=== PATIENT | male | born 1940 | race Caucasian/White ===

== ENCOUNTER 2022-04-23 10:00 | Inpatient (IN) | payer MEDICARE, SELFPAY ==
[2022-04-23] MEDS ORDERED: cefTRIAXone\\ROCEPHIN 1 GM VIAL ONE (10:43)
[2022-04-23 10:55] LABS: #Basophils 0.1 10x3/uL (0.0-0.2); #Monocytes 1.7 10x3/uL (0.0-1.1); #Neutrophils 7.2 10x3/uL (1.5-8.4); %Basophils 0.4 % (0.0-2.0); %Eosinophils 0.3 % (0.0-6.0); %Lymphocytes 19.1 % (18.0-47.0); %Neutrophils 63.9 % (40.0-75.0); Hemoglobin 14.4 g/dL (13.5-17.5); Mean Corpuscular HGB CONC 33.4 g/dL (32.0-36.0); Mean Corpuscular Hemoglobin 30.8 pg (27.0-33.0); Mean Corpuscular Volume 92.1 fl (81.2-95.1); Platelet Count 130 10x3/uL (150-450); RBC Distribution Width 12.9 % (11.5-14.5); Red Blood Cell (RBC) Count 4.68 10x6/uL (4.32-5.72); White Blood Cell (WBC) Count 11.3 10x3/uL (3.5-10.5)
[2022-04-23 11:02] LABS: ALT (SGPT) 11 U/L (8-55); AST (SGOT) 23 U/L (5-34); Albumin 3.5 g/dL (3.4-4.8); Alkaline Phosphatase 61 U/L (40-110); Anion Gap 15 mmol/L (10-20); BUN (Urea Nitrogen) 24 mg/dL (8.4-25.7); Bilirubin, Total 0.9 mg/dL (0.2-1.2); Calc. Creatinine Clearance 0 mL/min (70-130); Calcium 8.1 mg/dL (7.8-10.44); Carbon Dioxide 20 mmol/L (23-31); Chloride 104 mmol/L (98-107); Estimated GFR 56; Glucose 97 mg/dL (83-110); Lipase 58 U/L (8-78); Protein, Total 6.5 g/dL (5.8-8.1); Sodium 135 mmol/L (136-145)
[2022-04-23 11:51] LABS: SARS-CoV-2 NAA Rapid Test DETECTED (NotDetected)
[2022-04-23 12:06] LABS: Bilirubin Neg (Negative); Blood, Urine 250 (Negative); Clarity Clear (Clear); Glucose, Urine (Dipstick) Normal (Negative); Ketone, Urine Negative (Negative); Leukocyte Negative (Negative); Nitrite Negative (Negative); Protein, Urine (Dipstick) 100 mg/dl (Neg-Trace); Specific Gravity, Urine 1.025 (1.002-1.036); Urobilinogen Normal mg/dL (Less than 2)
[2022-04-23 12:17] LABS: Bacteria/HPF 3+ HPF (None Seen); Mucous/LPF 1+ LPF (<2+); Squamous Epithelial 0-3 HPF (0-3); WBC/HPF 0-3 HPF (0-3)
[2022-04-23] MEDS ORDERED: Ondansetron PF 4 MG/2 ML Vial IVP PRN (21:25)
[2022-04-23] MEDS ORDERED: Acetaminophen 325 MG TAB PO PRN (21:25)
[2022-04-23] MEDS ORDERED: Melatonin 3 MG TAB PO PRN (22:26)
[2022-04-24 03:57] LABS: #Monocytes 1.5 10x3/uL (0.0-1.1); #Neutrophils 7.1 10x3/uL (1.5-8.4); %Basophils 0.3 % (0.0-2.0); %Lymphocytes 23.3 % (18.0-47.0); %Monocytes 12.9 % (0.0-10.0); %Neutrophils 62.6 % (40.0-75.0); Hemoglobin 14.2 g/dL (13.5-17.5); Mean Corpuscular HGB CONC 34.1 g/dL (32.0-36.0); Mean Corpuscular Hemoglobin 31.1 pg (27.0-33.0); Mean Corpuscular Volume 91.2 fl (81.2-95.1); Mean Platelet Volume 9.2 fl (7.4-10.4); Platelet Count 147 10x3/uL (150-450); RBC Distribution Width 12.7 % (11.5-14.5); Red Blood Cell (RBC) Count 4.57 10x6/uL (4.32-5.72); White Blood Cell (WBC) Count 11.3 10x3/uL (3.5-10.5)
[2022-04-24 04:14] LABS: Anion Gap 15 mmol/L (10-20); BUN (Urea Nitrogen) 21 mg/dL (8.4-25.7); Calc. Creatinine Clearance 0 mL/min (70-130); Calcium 8.3 mg/dL (7.8-10.44); Carbon Dioxide 22 mmol/L (23-31); Chloride 105 mmol/L (98-107); Estimated GFR 61; Glucose 100 mg/dL (83-110); Potassium 3.6 mmol/L (3.5-5.1); Sodium 138 mmol/L (136-145)
[2022-04-24] MEDS: Enoxaparin Sodium 40 MG/0.4 ML SYRINGE SC SCH (09:30)
[2022-04-24] MEDS: cefTRIAXone\\ROCEPHIN 1 GM in Sodium Chloride 0.9% 100 ML IVPB SCH (10:30)
[2022-04-24] MEDS ORDERED: Enoxaparin Sodium 40 MG/0.4 ML SYRINGE ONE (11:03)
[2022-04-24] MEDS ORDERED: cefTRIAXone\\ROCEPHIN 1 GM VIAL ONE (11:03)
[2022-04-24 16:10] VITALS: BMI 23.7
[2022-04-24] MEDS: Atorvastatin Calcium 40 MG TAB PO SCH (20:35)
[2022-04-25] MEDS: Aspirin 81 mg Enteric Coated Tablet PO SCH (09:27)
[2022-04-25] MEDS: Enoxaparin Sodium 40 MG/0.4 ML SYRINGE SC SCH (09:40)
[2022-04-25] MEDS: cefTRIAXone\\ROCEPHIN 1 GM in Sodium Chloride 0.9% 100 ML IVPB SCH (11:53)
[2022-04-25] MEDS: Lactated Ringer's 1,000 ML IV SCH ×2 (15:26→16:55)
[2022-04-25] MEDS: Atorvastatin Calcium 40 MG TAB PO SCH (21:02)
[2022-04-26] MEDS: Enoxaparin Sodium 40 MG/0.4 ML SYRINGE SC SCH (09:34)
[2022-04-26] MEDS: Aspirin 81 mg Enteric Coated Tablet PO SCH (09:34)
[2022-04-26] MEDS: cefTRIAXone\\ROCEPHIN 1 GM in Sodium Chloride 0.9% 100 ML IVPB SCH (09:34)
[2022-04-26] MEDS ORDERED: Lactated Ringer's 1,000 ML IV SCH (11:45)
[2022-04-26] MEDS: Lactated Ringer's 1,000 ML IV SCH (15:02)
[2022-04-26] MEDS: Atorvastatin Calcium 40 MG TAB PO SCH (21:42)
[2022-04-27] MEDS: Lactated Ringer's 1,000 ML IV SCH ×2 (00:48→16:07)
[2022-04-27] MEDS ORDERED: Lactated Ringer's 250 ML IV SCH (05:03)
[2022-04-27 07:11] LABS: Hemoglobin 14.3 g/dL (13.5-17.5); Mean Corpuscular HGB CONC 36.3 g/dL (32.0-36.0); Mean Corpuscular Hemoglobin 31.2 pg (27.0-33.0); Mean Platelet Volume 9.6 fl (7.4-10.4); Platelet Count 145 10x3/uL (150-450); RBC Distribution Width 12.5 % (11.5-14.5); Red Blood Cell (RBC) Count 4.58 10x6/uL (4.32-5.72); White Blood Cell (WBC) Count 6.1 10x3/uL (3.5-10.5)
[2022-04-27 07:55] LABS: Anion Gap 13 mmol/L (10-20); BUN (Urea Nitrogen) 12 mg/dL (8.4-25.7); Calc. Creatinine Clearance 85 mL/min (70-130); Calcium 8.3 mg/dL (7.8-10.44); Carbon Dioxide 22 mmol/L (23-31); Chloride 105 mmol/L (98-107); Estimated GFR 88; Glucose 87 mg/dL (83-110); Potassium 3.7 mmol/L (3.5-5.1); Sodium 136 mmol/L (136-145)
[2022-04-27] MEDS: Aspirin 81 mg Enteric Coated Tablet PO SCH (10:06)
[2022-04-27] MEDS: Enoxaparin Sodium 40 MG/0.4 ML SYRINGE SC SCH (10:06)
[2022-04-27] MEDS: Atorvastatin Calcium 40 MG TAB PO SCH (22:25)
[2022-04-28] MEDS: Lactated Ringer's 1,000 ML IV SCH ×2 (03:40→16:30)
[2022-04-28] MEDS: Aspirin 81 mg Enteric Coated Tablet PO SCH (09:16)
[2022-04-28] MEDS: Enoxaparin Sodium 40 MG/0.4 ML SYRINGE SC SCH (09:22)
[2022-04-28] MEDS ORDERED: Guaifenesin DM 100-10/5 ML UDCUP PO PRN (22:48)
[2022-04-28] MEDS: Atorvastatin Calcium 40 MG TAB PO SCH (23:04)
[2022-04-29] MEDS: Lactated Ringer's 1,000 ML IV SCH ×2 (07:00→20:36)
[2022-04-29] MEDS: Benzonatate 100 MG CAP PO SCH ×3 (08:41→20:36)
[2022-04-29] MEDS: Enoxaparin Sodium 40 MG/0.4 ML SYRINGE SC SCH (08:41)
[2022-04-29] MEDS: Aspirin 81 mg Enteric Coated Tablet PO SCH (08:41)
[2022-04-29] MEDS: Atorvastatin Calcium 40 MG TAB PO SCH (20:36)
[2022-04-30] MEDS: Lactated Ringer's 1,000 ML IV SCH ×2 (08:21→22:51)
[2022-04-30] MEDS: Enoxaparin Sodium 40 MG/0.4 ML SYRINGE SC SCH (08:22)
[2022-04-30] MEDS: Benzonatate 100 MG CAP PO SCH ×3 (08:22→22:45)
[2022-04-30] MEDS: Aspirin 81 mg Enteric Coated Tablet PO SCH (08:22)
[2022-04-30] MEDS: Atorvastatin Calcium 40 MG TAB PO SCH (22:45)
[2022-05-01 07:24] VITALS: BP 124/84; TEMP 97.3
[2022-05-01] MEDS: Benzonatate 100 MG CAP PO SCH ×2 (08:59→14:45)
[2022-05-01] MEDS: Enoxaparin Sodium 40 MG/0.4 ML SYRINGE SC SCH (08:59)
[2022-05-01] MEDS: Aspirin 81 mg Enteric Coated Tablet PO SCH (08:59)
[2022-05-01] MEDS: Lactated Ringer's 1,000 ML IV SCH (11:44)
== END 2022-05-01 18:21 | disposition home or self-care (01) | DRG 177 ==
LOC: CSHERS 10:00 → CSHERHOLD 20:19 → UNDOADMIN 20:19 → CSHERHOLD 04-24 14:04 → CSHTELE 04-24 14:04 → CSHERHOLD 04-24 16:54
PROVIDERS: ADMIT Family Medicine; ATTEND Internal Medicine
PROC: 8E0ZXY6 Isolation (ICD-10-PCS; principal; 2022-04-24)
DX: U07.1 COVID-19 (principal); G93.41 Metabolic encephalopathy; H91.90 Unspecified hearing loss, unspecified ear; D69.6 Thrombocytopenia, unspecified; I95.1 Orthostatic hypotension; Z86.73 Personal history of transient ischemic attack (TIA), and cerebral infarction without residual deficits; Z82.49 Family history of ischemic heart disease and other diseases of the circulatory system; Z87.891 Personal history of nicotine dependence; Z91.14 Patient's other noncompliance with medication regimen
CPT/HCPCS: 36415; 70450; 71045; 80048; 80053; 81003; 81015; 82140; 83605; 83690; 84443; 84484; 85025; 85027; 87040; 87086; 93005; 94760; 96365; J0696; J1650; J3490; J7120

== ENCOUNTER 2022-05-27 14:49 | Inpatient (IN) | payer MEDICARE ==
[~2022-05-27 14:49] MED LIST: Iopamidol 300 61% 100 ML VIAL FS ONE
[2022-05-27 15:12] LABS: Actual Bicarbonate (HCO3v) 18 mEq/L (22-28); Base Excess -5.7 mEq/L (-2.0 to +3.0); Calcium, Ionized (venous) 0.98 mmol/L (1.16-1.32); Chloride (VBG) 111 mmol/L (98-106); Hemoglobin (Hb) 12.8 g/dL (12.6-17.4); Potassium (VBG) 3.27 mmol/L (3.70-5.30); Puncture Site Other Site; RapidComm Collect By lab tech; Sodium 141.5 mmol/L (133-146); pH (venous) 7.38 (7.32-7.43)
[2022-05-27] MEDS ORDERED: NOREPINEPHRINE 8 MG/250 ML-D5W 250 ML ONE ×2 (15:13→17:53)
[2022-05-27 15:26] LABS: Bilirubin Neg (Negative); Blood, Urine 250 (Negative); Clarity Clear (Clear); Glucose, Urine (Dipstick) Normal (Negative); Ketone, Urine Negative (Negative); Leukocyte Negative (Negative); Nitrite Negative (Negative); Protein, Urine (Dipstick) 30 mg/dl (Neg-Trace); Urobilinogen Normal mg/dL (Less than 2)
[2022-05-27 15:31] LABS: #Basophils 0.1 10x3/uL (0.0-0.2); #Eosinphils 0.3 10x3/uL (0.0-0.5); #Monocytes 0.6 10x3/uL (0.0-1.1); #Neutrophils 9.6 10x3/uL (1.5-8.4); %Basophils 0.4 % (0.0-2.0); %Eosinophils 2.8 % (0.0-6.0); %Lymphocytes 11.2 % (18.0-47.0); %Monocytes 5.3 % (0.0-10.0); %Neutrophils 79.2 % (40.0-75.0); Hemoglobin 11.7 g/dL (13.5-17.5); Mean Corpuscular HGB CONC 33.6 g/dL (32.0-36.0); Mean Corpuscular Hemoglobin 30.3 pg (27.0-33.0); Mean Corpuscular Volume 90.2 fl (81.2-95.1); Mean Platelet Volume 9.5 fl (7.4-10.4); Platelet Count 115 10x3/uL (150-450); RBC Distribution Width 13.5 % (11.5-14.5); Red Blood Cell (RBC) Count 3.86 10x6/uL (4.32-5.72); White Blood Cell (WBC) Count 12.1 10x3/uL (3.5-10.5)
[2022-05-27 15:36] LABS: Squamous Epithelial 0-3 HPF (0-3); WBC/HPF 0-3 HPF (0-3)
[2022-05-27 15:37] LABS: INR-International Normal Ratio 1.2; PTT 26.6 sec (22.0-33.0); Prothrombin Time 12.4 sec (9.5-12.1)
[2022-05-27 15:37] LABS: Bacteria/HPF None Seen HPF (None Seen)
[2022-05-27 15:42] LABS: SARS-CoV-2 NAA Rapid Test DETECTED (NotDetected)
[2022-05-27 15:44] LABS: ALT (SGPT) 11 U/L (8-55); AST (SGOT) 22 U/L (5-34); Acetaminophen Less than 10.0 mcg/mL (10.0-30.0); Alcohol Less than 10 mg/dL (Less than 10); Alkaline Phosphatase 59 U/L (40-110); Anion Gap 11 mmol/L (10-20); BUN (Urea Nitrogen) 12 mg/dL (8.4-25.7); Bilirubin, Total 0.9 mg/dL (0.2-1.2); CK (CPK) 175 U/L (30-200); Calc. Creatinine Clearance 0 mL/min (70-130); Calcium 7.9 mg/dL (7.8-10.44); Carbon Dioxide 20 mmol/L (23-31); Chloride 113 mmol/L (98-107); Estimated GFR 62; Glucose 107 mg/dL (83-110); Potassium 3.4 mmol/L (3.5-5.1); Salicylate Less than 8.0 mg/dL (15.0-30.0); Sodium 141 mmol/L (136-145)
[2022-05-27 15:44] LABS: Amphetamine Not Detected (NotDetected); Barbiturates Screen Not Detected (NotDetected); Benzodiazepine Screen Not Detected (NotDetected); Cocaine Metabolite Screen Not Detected (NotDetected); Methadone Not Detected (NotDetected); Methamphetamine Not Detected (NotDetected); Opiate Screen Not Detected (NotDetected); Oxycodone Screen Not Detected (NotDetected); Phencyclidine (PCP) Not Detected (NotDetected); THC/Cannabinoid Screen Not Detected (NotDetected); Tricyclic Screen Not Detected (NotDetected)
[2022-05-27 15:57] LABS: CRP (Inflammatory) 1.19 mg/dL (= or < 0.5); Magnesium 1.8 mg/dL (1.6-2.6)
[2022-05-27] MEDS ORDERED: Electrolyte Replacement Protocol IVPB PRN (16:12)
[2022-05-27] MEDS ORDERED: Ventilator Sedation Protocol 1 EACH FS PRN (16:15)
[2022-05-27] MEDS ORDERED: Acetaminophen 650 MG Suppository PR PRN (16:15)
[2022-05-27] MEDS ORDERED: Acetaminophen 325 MG TAB PO PRN (16:15)
[2022-05-27] MEDS ORDERED: Propofol 1,000 MG/100 ML VIAL IV ONE (17:14)
[2022-05-27] MEDS ORDERED: Morphine 2 MG/ML VIAL SLOW IVP PRN (17:45)
[2022-05-27] MEDS ORDERED: fentaNYL Citrate-0.9 % NaCl/PF 100 ML IVPB SCH (17:45)
[2022-05-27] MEDS ORDERED: Lorazepam 2 MG/ML VIAL SLOW IVP PRN (17:45)
[2022-05-27] MEDS ORDERED: Fentanyl BOLUS 250 ML IVPB PRN (17:45)
[2022-05-27] MEDS ORDERED: Propofol BOLUS 1,000 MG/100 ML VIAL IV PRN (17:45)
[2022-05-27] MEDS ORDERED: DISCONTINUE PREVIOUS NARCOTIC PAIN MEDICATIONS AND BENZODIAZEPINES FS SCH (17:45)
[2022-05-27] MEDS ORDERED: NOREPINEPHRINE 8 MG/250 ML-D5W 250 ML IVPB SCH (18:00)
[2022-05-27] MEDS: Sodium Chloride 0.9% 1,000 ML IV SCH (18:20)
[2022-05-27] MEDS: Potassium Chloride 20 MEQ in Premix Bag 1 BAG IVPB SCH ×2 (18:23→20:41)
[2022-05-27] MEDS ORDERED: VANCOMYCIN 1.75 GM/350 ML BAG 1.75 GM in Premix Bag 1 BAG IVPB SCH (18:30)
[2022-05-27] MEDS ORDERED: Magnesium 2 GM/50 ML(in water) 2 GM in Premix Bag 1 BAG IVPB SCH (18:30)
[2022-05-27 19:27] LABS: Lactic Acid 2.2 mmol/L (0.5-2.2)
[2022-05-27 19:37] LABS: Troponin I 0.013 ng/mL (< 0.028)
[2022-05-27] MEDS: Cefepime 1 GM in Sodium Chloride 0.9% 100 ML IVPB SCH (20:41)
[2022-05-27] MEDS: Famotidine/PF 20 mg/2ml Vial SLOW IVP SCH (20:41)
[2022-05-27] MEDS: Propofol 1,000 MG/100 ML VIAL IV PRN (20:41)
[2022-05-27] MEDS ORDERED: Vancomycin 1 GM in Premix Bag 1 BAG IVPB SCH (21:00)
[2022-05-27 21:23] LABS: Troponin I 0.014 ng/mL (< 0.028)
[2022-05-28] MEDS: Sodium Chloride 0.9% 1,000 ML IV SCH (03:09)
[2022-05-28 04:35] LABS: #Basophils 0.1 10x3/uL (0.0-0.2); #Eosinphils 0.4 10x3/uL (0.0-0.5); #Monocytes 1.2 10x3/uL (0.0-1.1); #Neutrophils 10.4 10x3/uL (1.5-8.4); %Basophils 0.5 % (0.0-2.0); %Eosinophils 2.4 % (0.0-6.0); %Lymphocytes 15.7 % (18.0-47.0); %Monocytes 8.4 % (0.0-10.0); %Neutrophils 71.8 % (40.0-75.0); Hemoglobin 12.3 g/dL (13.5-17.5); Mean Corpuscular HGB CONC 33.2 g/dL (32.0-36.0); Mean Corpuscular Hemoglobin 30.3 pg (27.0-33.0); Mean Corpuscular Volume 91.4 fl (81.2-95.1); Mean Platelet Volume 9.5 fl (7.4-10.4); Platelet Count 123 10x3/uL (150-450); RBC Distribution Width 13.7 % (11.5-14.5); Red Blood Cell (RBC) Count 4.06 10x6/uL (4.32-5.72); White Blood Cell (WBC) Count 14.5 10x3/uL (3.5-10.5)
[2022-05-28 04:49] LABS: Anion Gap 14 mmol/L (10-20); BUN (Urea Nitrogen) 12 mg/dL (8.4-25.7); Calc. Creatinine Clearance 65 mL/min (70-130); Calcium 8.2 mg/dL (7.8-10.44); Carbon Dioxide 20 mmol/L (23-31); Chloride 113 mmol/L (98-107); Estimated GFR 62; Glucose 101 mg/dL (83-110); Magnesium 2.2 mg/dL (1.6-2.6); Phosphorus 3.1 mg/dL (2.3-4.7); Potassium 4.4 mmol/L (3.5-5.1); Sodium 143 mmol/L (136-145)
[2022-05-28 07:22] LABS: Actual Bicarbonate (HCO3a) 20.1 mEq/L (22-28); Base Excess (BEa) -5.6 mEq/L (-2.0 to +3.0); CO2 Tension 39.9 mmHg (35.0-45.0); Calcium, Ionized (arterial) 1.19 mmol/L (1.12-1.30); Carboxyhemoglobin (COHb) 0.3 gm% (0.0-3.0); Hemoglobin (Hb) 12.2 g/dL (14.0-18.0); O2 Tension (PaO2), arterial 96.6 mmHg (> 60.0); Potassium - ABG Lab 4.1 mmol/L (3.70-5.30); Puncture Site RRA; pH, Arterial 7.32 (7.35-7.45)
[2022-05-28 07:23] LABS: ALV-art Gradient 138.725 mmHg (0-20)
[2022-05-28] MEDS: Propofol 1,000 MG/100 ML VIAL IV PRN (08:03)
[2022-05-28] MEDS: Vancomycin HCl 1 GM in Sodium Chloride 0.9% 250 ML 250 ML IVPB SCH ×2 (08:21→21:00)
[2022-05-28] MEDS: Cefepime 1 GM in Sodium Chloride 0.9% 100 ML IVPB SCH (08:21)
[2022-05-28] MEDS: Famotidine/PF 20 mg/2ml Vial SLOW IVP SCH ×2 (08:21→21:52)
[2022-05-28] MEDS: Dexmedetomidine In 0.9 % NaCl 100 ML IVPB SCH ×2 (10:29→21:58)
[2022-05-28] MEDS: Dextrose 5 %-0.45 % NaCl 1,000 ML IV SCH (10:44)
[2022-05-28] MEDS ORDERED: Piperacillin/Tazobactam 3.375 GM in Sodium Chloride 0.9% 100 ML IVPB SCH (11:00)
[2022-05-28] MEDS ORDERED: Heparin 5,000 UNITS/ML VIAL SC SCH (15:00)
[2022-05-28] MEDS: Piperacillin/Tazobactam 3.375 GM in Sodium Chloride 0.9% 100 ML IVPB SCH ×2 (15:44→23:30)
[2022-05-28] MEDS ORDERED: Vancomycin HCl 1 GM in Sodium Chloride 0.9% 250 ML 250 ML IVPB SCH (18:00)
[2022-05-28] MEDS ORDERED: Haloperidol Lactate 5 MG/ML VIAL SLOW IVP PRN (21:05)
[2022-05-28] MEDS: Heparin 5,000 UNITS/ML VIAL SC SCH (21:52)
[2022-05-29 05:20] LABS: #Basophils 0.1 10x3/uL (0.0-0.2); #Eosinphils 0.3 10x3/uL (0.0-0.5); #Monocytes 1.2 10x3/uL (0.0-1.1); #Neutrophils 13.8 10x3/uL (1.5-8.4); %Basophils 0.3 % (0.0-2.0); %Eosinophils 1.5 % (0.0-6.0); %Lymphocytes 10.3 % (18.0-47.0); %Monocytes 6.8 % (0.0-10.0); %Neutrophils 80.5 % (40.0-75.0); Mean Corpuscular HGB CONC 33.7 g/dL (32.0-36.0); Mean Corpuscular Hemoglobin 30.6 pg (27.0-33.0); Mean Corpuscular Volume 90.8 fl (81.2-95.1); Mean Platelet Volume 9.4 fl (7.4-10.4); Platelet Count 113 10x3/uL (150-450); RBC Distribution Width 13.8 % (11.5-14.5); Red Blood Cell (RBC) Count 3.92 10x6/uL (4.32-5.72); White Blood Cell (WBC) Count 17.1 10x3/uL (3.5-10.5)
[2022-05-29 05:26] LABS: Vancomycin, Trough 21.7 ug/mL
[2022-05-29 05:28] LABS: Anion Gap 10 mmol/L (10-20); BUN (Urea Nitrogen) 15 mg/dL (8.4-25.7); Calc. Creatinine Clearance 53 mL/min (70-130); Carbon Dioxide 19 mmol/L (23-31); Chloride 115 mmol/L (98-107); Estimated GFR 50; Glucose 111 mg/dL (83-110); Potassium 3.9 mmol/L (3.5-5.1); Sodium 140 mmol/L (136-145)
[2022-05-29] MEDS: Piperacillin/Tazobactam 3.375 GM in Sodium Chloride 0.9% 100 ML IVPB SCH ×3 (06:33→23:35)
[2022-05-29] MEDS: Dextrose 5 %-0.45 % NaCl 1,000 ML IV SCH (06:34)
[2022-05-29] MEDS: Famotidine/PF 20 mg/2ml Vial SLOW IVP SCH ×2 (08:28→20:41)
[2022-05-29] MEDS: Heparin 5,000 UNITS/ML VIAL SC SCH ×3 (08:28→20:41)
[2022-05-29] MEDS: Dexmedetomidine In 0.9 % NaCl 100 ML IVPB SCH ×2 (08:28→17:59)
[2022-05-29] MEDS: Potassium Chloride 20 MEQ in Lactated Ringer's 1,000 ML IV SCH (12:16)
[2022-05-29] MEDS ORDERED: Vancomycin HCl 1 GM in Sodium Chloride 0.9% 250 ML 250 ML IVPB SCH (18:00)
[2022-05-29 20:09] LABS: #Basophils 0.1 10x3/uL (0.0-0.2); #Eosinphils 0.4 10x3/uL (0.0-0.5); #Neutrophils 10.6 10x3/uL (1.5-8.4); %Basophils 0.4 % (0.0-2.0); %Lymphocytes 11.8 % (18.0-47.0); %Monocytes 7.1 % (0.0-10.0); Hemoglobin 12.2 g/dL (13.5-17.5); Mean Corpuscular HGB CONC 33.2 g/dL (32.0-36.0); Mean Corpuscular Hemoglobin 30.4 pg (27.0-33.0); Mean Corpuscular Volume 91.8 fl (81.2-95.1); Mean Platelet Volume 9.7 fl (7.4-10.4); Platelet Count 109 10x3/uL (150-450); RBC Distribution Width 13.6 % (11.5-14.5); Red Blood Cell (RBC) Count 4.01 10x6/uL (4.32-5.72); White Blood Cell (WBC) Count 13.8 10x3/uL (3.5-10.5)
[2022-05-29] MEDS ORDERED: Midazolam HCl 2 mg/2 ml Vial SLOW IVP PRN (23:23)
[2022-05-29] MEDS ORDERED: PHENobarbital Sodium 65 MG/ML VIAL SLOW IVP PRN (23:25)
[2022-05-30] MEDS: Dexmedetomidine In 0.9 % NaCl 400 MCG in Premix Bag 1 BAG IVPB SCH ×3 (00:14→21:02)
[2022-05-30] MEDS: Potassium Chloride 20 MEQ in Lactated Ringer's 1,000 ML IV SCH (01:44)
[2022-05-30 04:34] LABS: #Basophils 0.1 10x3/uL (0.0-0.2); #Eosinphils 0.4 10x3/uL (0.0-0.5); #Monocytes 0.9 10x3/uL (0.0-1.1); #Neutrophils 9.7 10x3/uL (1.5-8.4); %Basophils 0.4 % (0.0-2.0); %Eosinophils 2.8 % (0.0-6.0); %Lymphocytes 12.1 % (18.0-47.0); %Monocytes 7.4 % (0.0-10.0); %Neutrophils 76.6 % (40.0-75.0); Hemoglobin 11.7 g/dL (13.5-17.5); Mean Corpuscular HGB CONC 34.1 g/dL (32.0-36.0); Mean Corpuscular Hemoglobin 30.6 pg (27.0-33.0); Mean Corpuscular Volume 89.8 fl (81.2-95.1); Mean Platelet Volume 9.9 fl (7.4-10.4); Platelet Count 116 10x3/uL (150-450); RBC Distribution Width 13.4 % (11.5-14.5); Red Blood Cell (RBC) Count 3.82 10x6/uL (4.32-5.72); White Blood Cell (WBC) Count 12.7 10x3/uL (3.5-10.5)
[2022-05-30 04:35] LABS: Anion Gap 13 mmol/L (10-20); BUN (Urea Nitrogen) 16 mg/dL (8.4-25.7); Calc. Creatinine Clearance 69 mL/min (70-130); Calcium 8.4 mg/dL (7.8-10.44); Carbon Dioxide 16 mmol/L (23-31); Chloride 114 mmol/L (98-107); Estimated GFR 68; Glucose 99 mg/dL (83-110); Potassium 4.3 mmol/L (3.5-5.1); Sodium 139 mmol/L (136-145)
[2022-05-30] MEDS: Piperacillin/Tazobactam 3.375 GM in Sodium Chloride 0.9% 100 ML IVPB SCH ×3 (07:24→23:03)
[2022-05-30] MEDS: Famotidine/PF 20 mg/2ml Vial SLOW IVP SCH ×2 (08:14→21:01)
[2022-05-30] MEDS: Enoxaparin Sodium 100 MG/ML SYRINGE SC SCH ×2 (08:14→21:01)
[2022-05-30] MEDS ORDERED: Enoxaparin Sodium 100 MG/ML SYRINGE ONE (08:17)
[2022-05-30] MEDS: Sodium Bicarbonate 50 MEQ in Dextrose 5 %-0.45 % NaCl 1,000 ML IV SCH (08:28)
[2022-05-30 17:44] LABS: Vancomycin, Trough 9.6 ug/mL
[2022-05-30] MEDS: Sodium Bicarbonate Tab 325 MG TAB PO SCH (21:01)
[2022-05-30] MEDS: HYDROcodone/Acetaminophen 5/325 mg Tablet PO PRN (21:02)
[2022-05-31] MEDS: Dexmedetomidine In 0.9 % NaCl 400 MCG in Premix Bag 1 BAG IVPB SCH ×5 (02:22→22:15)
[2022-05-31 03:46] LABS: #Basophils 0.1 10x3/uL (0.0-0.2); #Eosinphils 0.5 10x3/uL (0.0-0.5); #Monocytes 0.7 10x3/uL (0.0-1.1); #Neutrophils 5.9 10x3/uL (1.5-8.4); %Basophils 0.6 % (0.0-2.0); %Eosinophils 5.7 % (0.0-6.0); %Lymphocytes 22.8 % (18.0-47.0); %Monocytes 7.3 % (0.0-10.0); %Neutrophils 62.2 % (40.0-75.0); Hemoglobin 11.5 g/dL (13.5-17.5); Mean Corpuscular Hemoglobin 30.6 pg (27.0-33.0); Mean Corpuscular Volume 89.9 fl (81.2-95.1); Mean Platelet Volume 9.7 fl (7.4-10.4); Platelet Count 141 10x3/uL (150-450); RBC Distribution Width 13.4 % (11.5-14.5); Red Blood Cell (RBC) Count 3.76 10x6/uL (4.32-5.72); White Blood Cell (WBC) Count 9.4 10x3/uL (3.5-10.5)
[2022-05-31 04:06] LABS: Anion Gap 12 mmol/L (10-20); BUN (Urea Nitrogen) 12 mg/dL (8.4-25.7); Calc. Creatinine Clearance 81 mL/min (70-130); Calcium 8.2 mg/dL (7.8-10.44); Carbon Dioxide 22 mmol/L (23-31); Chloride 110 mmol/L (98-107); Estimated GFR 79; Glucose 118 mg/dL (83-110); Potassium 3.9 mmol/L (3.5-5.1); Sodium 140 mmol/L (136-145)
[2022-05-31] MEDS: Sodium Bicarbonate 50 MEQ in Dextrose 5 %-0.45 % NaCl 1,000 ML IV SCH (05:28)
[2022-05-31] MEDS: Piperacillin/Tazobactam 3.375 GM in Sodium Chloride 0.9% 100 ML IVPB SCH ×3 (06:29→23:00)
[2022-05-31] MEDS: Sodium Bicarbonate Tab 325 MG TAB PO SCH ×2 (08:02→21:47)
[2022-05-31] MEDS: Famotidine/PF 20 mg/2ml Vial SLOW IVP SCH ×2 (08:02→21:47)
[2022-05-31] MEDS: Enoxaparin Sodium 100 MG/ML SYRINGE SC SCH ×2 (08:02→21:47)
[2022-05-31] MEDS: HYDROcodone/Acetaminophen 5/325 mg Tablet PO PRN (21:47)
[2022-06-01] MEDS: Dexmedetomidine In 0.9 % NaCl 400 MCG in Premix Bag 1 BAG IVPB SCH ×6 (02:40→23:58)
[2022-06-01] MEDS: Sodium Bicarbonate 50 MEQ in Dextrose 5 %-0.45 % NaCl 1,000 ML IV SCH ×2 (03:43→23:54)
[2022-06-01 03:55] LABS: #Eosinphils 0.4 10x3/uL (0.0-0.5); #Monocytes 0.5 10x3/uL (0.0-1.1); #Neutrophils 4.5 10x3/uL (1.5-8.4); %Basophils 0.5 % (0.0-2.0); %Eosinophils 5.7 % (0.0-6.0); %Lymphocytes 23.9 % (18.0-47.0); %Monocytes 7.3 % (0.0-10.0); %Neutrophils 61.1 % (40.0-75.0); Hemoglobin 11.5 g/dL (13.5-17.5); Mean Corpuscular HGB CONC 34.3 g/dL (32.0-36.0); Mean Corpuscular Hemoglobin 30.6 pg (27.0-33.0); Mean Corpuscular Volume 89.1 fl (81.2-95.1); Mean Platelet Volume 9.7 fl (7.4-10.4); Platelet Count 172 10x3/uL (150-450); RBC Distribution Width 13.2 % (11.5-14.5); Red Blood Cell (RBC) Count 3.76 10x6/uL (4.32-5.72); White Blood Cell (WBC) Count 7.4 10x3/uL (3.5-10.5)
[2022-06-01 04:02] LABS: Anion Gap 12 mmol/L (10-20); BUN (Urea Nitrogen) 9 mg/dL (8.4-25.7); Calc. Creatinine Clearance 78 mL/min (70-130); Calcium 8.1 mg/dL (7.8-10.44); Carbon Dioxide 20 mmol/L (23-31); Chloride 113 mmol/L (98-107); Estimated GFR 77; Glucose 111 mg/dL (83-110); Potassium 3.6 mmol/L (3.5-5.1); Sodium 141 mmol/L (136-145)
[2022-06-01] MEDS: Piperacillin/Tazobactam 3.375 GM in Sodium Chloride 0.9% 100 ML IVPB SCH ×3 (07:14→23:13)
[2022-06-01] MEDS: Enoxaparin Sodium 100 MG/ML SYRINGE SC SCH ×2 (08:21→20:51)
[2022-06-01] MEDS: Sodium Bicarbonate Tab 325 MG TAB PO SCH ×2 (08:21→20:51)
[2022-06-01] MEDS: Famotidine/PF 20 mg/2ml Vial SLOW IVP SCH ×2 (08:21→20:52)
[2022-06-02 03:48] LABS: #Eosinphils 0.3 10x3/uL (0.0-0.5); #Monocytes 0.6 10x3/uL (0.0-1.1); #Neutrophils 4.3 10x3/uL (1.5-8.4); %Basophils 0.4 % (0.0-2.0); %Eosinophils 4.5 % (0.0-6.0); %Lymphocytes 24.4 % (18.0-47.0); %Monocytes 8.7 % (0.0-10.0); %Neutrophils 60.3 % (40.0-75.0); Hemoglobin 10.7 g/dL (13.5-17.5); Mean Corpuscular HGB CONC 34.1 g/dL (32.0-36.0); Mean Corpuscular Hemoglobin 30.3 pg (27.0-33.0); Mean Platelet Volume 9.5 fl (7.4-10.4); Platelet Count 165 10x3/uL (150-450); RBC Distribution Width 13.4 % (11.5-14.5); Red Blood Cell (RBC) Count 3.53 10x6/uL (4.32-5.72); White Blood Cell (WBC) Count 7.1 10x3/uL (3.5-10.5)
[2022-06-02 04:00] LABS: Anion Gap 11 mmol/L (10-20); BUN (Urea Nitrogen) 8 mg/dL (8.4-25.7); Calc. Creatinine Clearance 81 mL/min (70-130); Calcium 7.9 mg/dL (7.8-10.44); Carbon Dioxide 22 mmol/L (23-31); Chloride 113 mmol/L (98-107); Estimated GFR 82; Glucose 100 mg/dL (83-110); Potassium 3.4 mmol/L (3.5-5.1); Sodium 143 mmol/L (136-145)
[2022-06-02] MEDS ORDERED: Potassium Chloride 20 MEQ TAB PO SCH (05:15)
[2022-06-02] MEDS: Dexmedetomidine In 0.9 % NaCl 400 MCG in Premix Bag 1 BAG IVPB SCH (05:21)
[2022-06-02] MEDS: Piperacillin/Tazobactam 3.375 GM in Sodium Chloride 0.9% 100 ML IVPB SCH ×3 (06:02→23:15)
[2022-06-02] MEDS: Potassium Chloride 20 MEQ in Premix Bag 1 BAG IVPB SCH ×2 (06:02→07:26)
[2022-06-02] MEDS: Famotidine/PF 20 mg/2ml Vial SLOW IVP SCH ×2 (08:00→20:41)
[2022-06-02] MEDS: Enoxaparin Sodium 100 MG/ML SYRINGE SC SCH ×2 (08:00→20:40)
[2022-06-02] MEDS: Sodium Bicarbonate Tab 325 MG TAB PO SCH ×2 (08:00→20:40)
[2022-06-02] MEDS ORDERED: Enoxaparin Sodium 100 MG/ML SYRINGE ONE (20:44)
[2022-06-02] MEDS: Metoprolol Tartrate 5 MG/5 ML VIAL IVP PRN (20:59)
[2022-06-03 00:01] LABS: #Eosinphils 0.2 10x3/uL (0.0-0.5); #Monocytes 1.1 10x3/uL (0.0-1.1); #Neutrophils 8.8 10x3/uL (1.5-8.4); %Basophils 0.3 % (0.0-2.0); %Eosinophils 1.7 % (0.0-6.0); %Lymphocytes 14.2 % (18.0-47.0); %Monocytes 8.8 % (0.0-10.0); %Neutrophils 73.2 % (40.0-75.0); Hemoglobin 11.7 g/dL (13.5-17.5); Mean Corpuscular HGB CONC 32.8 g/dL (32.0-36.0); Mean Corpuscular Hemoglobin 29.5 pg (27.0-33.0); Mean Corpuscular Volume 89.9 fl (81.2-95.1); Mean Platelet Volume 9.4 fl (7.4-10.4); Platelet Count 242 10x3/uL (150-450); RBC Distribution Width 13.4 % (11.5-14.5); Red Blood Cell (RBC) Count 3.97 10x6/uL (4.32-5.72)
[2022-06-03 00:15] LABS: Anion Gap 13 mmol/L (10-20); BUN (Urea Nitrogen) 6 mg/dL (8.4-25.7); Calc. Creatinine Clearance 64 mL/min (70-130); Calcium 8.5 mg/dL (7.8-10.44); Carbon Dioxide 24 mmol/L (23-31); Chloride 111 mmol/L (98-107); Estimated GFR 61; Glucose 86 mg/dL (83-110); Potassium 3.8 mmol/L (3.5-5.1); Sodium 144 mmol/L (136-145)
[2022-06-03] MEDS ORDERED: Lorazepam 2 MG/ML VIAL SLOW IVP PRN (01:13)
[2022-06-03] MEDS ORDERED: Lactated Ringer's 500 ML IV SCH (01:15)
[2022-06-03] MEDS ORDERED: Dextrose 5 %-0.45 % NaCl 1,000 ML IV SCH (01:30)
[2022-06-03] MEDS: Metoprolol Tartrate 5 MG/5 ML VIAL IVP PRN ×3 (03:57→20:05)
[2022-06-03 04:44] LABS: Lactic Acid 1.4 mmol/L (0.5-2.2)
[2022-06-03 04:51] LABS: #Eosinphils 0.1 10x3/uL (0.0-0.5); #Monocytes 0.9 10x3/uL (0.0-1.1); #Neutrophils 8.4 10x3/uL (1.5-8.4); %Basophils 0.4 % (0.0-2.0); %Eosinophils 0.7 % (0.0-6.0); %Monocytes 7.9 % (0.0-10.0); %Neutrophils 75.3 % (40.0-75.0); Hemoglobin 11.5 g/dL (13.5-17.5); Mean Corpuscular HGB CONC 34.6 g/dL (32.0-36.0); Mean Corpuscular Hemoglobin 30.9 pg (27.0-33.0); Mean Corpuscular Volume 89.2 fl (81.2-95.1); Mean Platelet Volume 9.7 fl (7.4-10.4); Platelet Count 230 10x3/uL (150-450); RBC Distribution Width 13.6 % (11.5-14.5); Red Blood Cell (RBC) Count 3.72 10x6/uL (4.32-5.72); White Blood Cell (WBC) Count 11.1 10x3/uL (3.5-10.5)
[2022-06-03 04:52] LABS: ALT (SGPT) 14 U/L (8-55); AST (SGOT) 22 U/L (5-34); Alkaline Phosphatase 58 U/L (40-110); Anion Gap 12 mmol/L (10-20); BUN (Urea Nitrogen) 6 mg/dL (8.4-25.7); Bilirubin, Total 0.9 mg/dL (0.2-1.2); Calc. Creatinine Clearance 64 mL/min (70-130); Calcium 8.4 mg/dL (7.8-10.44); Carbon Dioxide 25 mmol/L (23-31); Chloride 108 mmol/L (98-107); Estimated GFR 61; Globulin 2.9 g/dL (2.4-3.5); Glucose 85 mg/dL (83-110); Potassium 3.8 mmol/L (3.5-5.1); Protein, Total 5.9 g/dL (5.8-8.1); Sodium 141 mmol/L (136-145)
[2022-06-03] MEDS: Piperacillin/Tazobactam 3.375 GM in Sodium Chloride 0.9% 100 ML IVPB SCH ×3 (06:41→22:49)
[2022-06-03] MEDS: Famotidine/PF 20 mg/2ml Vial SLOW IVP SCH ×2 (08:10→20:04)
[2022-06-03] MEDS: Enoxaparin Sodium 100 MG/ML SYRINGE SC SCH ×2 (08:10→20:04)
[2022-06-03] MEDS: Sodium Bicarbonate Tab 325 MG TAB PO SCH ×2 (10:15→20:05)
[2022-06-03] MEDS ORDERED: Iopamidol 300 61% 100 ML VIAL FS ONE (14:34)
[2022-06-03] MEDS ORDERED: Lorazepam 2 MG/ML VIAL SLOW IVP SCH (20:45)
[2022-06-04] MEDS: Metoprolol Tartrate 5 MG/5 ML VIAL IVP PRN ×3 (06:56→14:02)
[2022-06-04] MEDS: Enoxaparin Sodium 100 MG/ML SYRINGE SC SCH ×2 (08:00→21:10)
[2022-06-04] MEDS: Famotidine/PF 20 mg/2ml Vial SLOW IVP SCH ×2 (08:00→21:10)
[2022-06-04 09:20] LABS: Anion Gap 13 mmol/L (10-20); BUN (Urea Nitrogen) 4 mg/dL (8.4-25.7); Calc. Creatinine Clearance 73 mL/min (70-130); Calcium 8.1 mg/dL (7.8-10.44); Carbon Dioxide 21 mmol/L (23-31); Chloride 112 mmol/L (98-107); Estimated GFR 74; Glucose 87 mg/dL (83-110); Magnesium 1.6 mg/dL (1.6-2.6); Potassium 3.6 mmol/L (3.5-5.1); Sodium 142 mmol/L (136-145)
[2022-06-04] MEDS ORDERED: Magnesium 2 GM/50 ML(in water) 2 GM in Premix Bag 1 BAG IVPB SCH (09:45)
[2022-06-04] MEDS ORDERED: Magnesium Oxide 400 MG TAB PO SCH (16:00)
[2022-06-04] MEDS ORDERED: Metoprolol Tartrate 25 MG TAB PO SCH (20:45)
[2022-06-05 03:53] LABS: Anion Gap 12 mmol/L (10-20); BUN (Urea Nitrogen) 4 mg/dL (8.4-25.7); Calc. Creatinine Clearance 81 mL/min (70-130); Calcium 8.2 mg/dL (7.8-10.44); Carbon Dioxide 21 mmol/L (23-31); Chloride 111 mmol/L (98-107); Estimated GFR 84; Glucose 95 mg/dL (83-110); Magnesium 1.9 mg/dL (1.6-2.6); Potassium 3.5 mmol/L (3.5-5.1); Sodium 140 mmol/L (136-145)
[2022-06-05] MEDS: Potassium Chloride 20 MEQ in Premix Bag 1 BAG IVPB SCH ×2 (04:48→07:48)
[2022-06-05] MEDS ORDERED: Magnesium 2 GM/50 ML(in water) 2 GM in Premix Bag 1 BAG IVPB SCH (05:00)
[2022-06-05] MEDS: Famotidine/PF 20 mg/2ml Vial SLOW IVP SCH ×2 (07:49→20:35)
[2022-06-05] MEDS: Enoxaparin Sodium 100 MG/ML SYRINGE SC SCH ×2 (09:51→21:34)
[2022-06-05 23:34] VITALS: TEMP 98.4
[2022-06-06] MEDS: Metoprolol Tartrate 5 MG/5 ML VIAL IVP PRN (00:27)
[2022-06-06 04:11] LABS: #Eosinphils 0.4 10x3/uL (0.0-0.5); #Monocytes 0.8 10x3/uL (0.0-1.1); %Basophils 0.2 % (0.0-2.0); %Eosinophils 4.7 % (0.0-6.0); %Lymphocytes 15.9 % (18.0-47.0); %Monocytes 8.8 % (0.0-10.0); %Neutrophils 68.8 % (40.0-75.0); Hemoglobin 9.3 g/dL (13.5-17.5); Mean Corpuscular HGB CONC 33.6 g/dL (32.0-36.0); Mean Corpuscular Hemoglobin 30.3 pg (27.0-33.0); Mean Corpuscular Volume 90.2 fl (81.2-95.1); Mean Platelet Volume 9.4 fl (7.4-10.4); Platelet Count 263 10x3/uL (150-450); RBC Distribution Width 13.5 % (11.5-14.5); Red Blood Cell (RBC) Count 3.07 10x6/uL (4.32-5.72); White Blood Cell (WBC) Count 8.7 10x3/uL (3.5-10.5)
[2022-06-06 04:20] LABS: Anion Gap 12 mmol/L (10-20); BUN (Urea Nitrogen) 9 mg/dL (8.4-25.7); Calc. Creatinine Clearance 68 mL/min (70-130); Calcium 8.2 mg/dL (7.8-10.44); Carbon Dioxide 21 mmol/L (23-31); Chloride 111 mmol/L (98-107); Estimated GFR 68; Glucose 135 mg/dL (83-110); Potassium 3.7 mmol/L (3.5-5.1); Sodium 140 mmol/L (136-145)
[2022-06-06 08:21] VITALS: BMI 24.4
[2022-06-06] MEDS: Enoxaparin Sodium 100 MG/ML SYRINGE SC SCH (09:12)
[2022-06-06] MEDS: Famotidine/PF 20 mg/2ml Vial SLOW IVP SCH (09:15)
[2022-06-06 12:18] VITALS: BP 125/74
[2022-06-06] MEDS ORDERED: Apixaban 5 MG TAB PO SCH (21:00)
== END 2022-06-06 15:10 | DRG 871 ==
LOC: CSHERS 14:49 → CSHIMCU 17:39 → UNDODISIN 05-30 18:15 → CSHICU 06-02 22:23
PROVIDERS: ADMIT Family Medicine; ATTEND Internal Medicine
PROC: 5A1935Z Respiratory Ventilation, Less than 24 Consecutive Hours (ICD-10-PCS; principal; 2022-05-27)
PROC: 3E03329 Introduction of Other Anti-infective into Peripheral Vein, Percutaneous Approach (ICD-10-PCS; 2022-05-27)
PROC: 3E033XZ Introduction of Vasopressor into Peripheral Vein, Percutaneous Approach (ICD-10-PCS; 2022-05-27)
PROC: 8E0ZXY6 Isolation (ICD-10-PCS; 2022-05-27)
PROC: 0D9670Z Drainage of Stomach with Drainage Device, Via Natural or Artificial Opening (ICD-10-PCS; 2022-05-27)
DX: A41.9 Sepsis, unspecified organism (principal); G93.41 Metabolic encephalopathy; U07.1 COVID-19; J96.01 Acute respiratory failure with hypoxia; R65.21 Severe sepsis with septic shock; J69.0 Pneumonitis due to inhalation of food and vomit; E87.2 Acidosis; N17.9 Acute kidney failure, unspecified; F01.51 Vascular dementia, unspecified severity, with behavioral disturbance; I48.19 Other persistent atrial fibrillation; I24.0 Acute coronary thrombosis not resulting in myocardial infarction; Z66 Do not resuscitate; Z51.5 Encounter for palliative care; I95.9 Hypotension, unspecified; H91.90 Unspecified hearing loss, unspecified ear; K62.89 Other specified diseases of anus and rectum; R41.0 Disorientation, unspecified; N18.9 Chronic kidney disease, unspecified; I12.9 Hypertensive chronic kidney disease with stage 1 through stage 4 chronic kidney disease, or unspecified chronic kidney disease; I48.0 Paroxysmal atrial fibrillation; R13.12 Dysphagia, oropharyngeal phase; R19.7 Diarrhea, unspecified; R10.9 Unspecified abdominal pain; Z98.890 Other specified postprocedural states; Z87.891 Personal history of nicotine dependence; Z86.73 Personal history of transient ischemic attack (TIA), and cerebral infarction without residual deficits; Z78.1 Physical restraint status
CPT/HCPCS: 36415; 36600; 51702; 70450; 71045; 74177; 80048; 80053; 80202; 80306; 80307; 81003; 81015; 82550; 82607; 82805; 83605; 83690; 83735; 83880; 84100; 84443; 84484; 85025; 85610; 85730; 86140; 86850; 86900; 86901; 87040; 87086; 87324; 87449; 93005; 93010; 93306; 94002; 94003; 94760; 96365; 96366; 96368; J0692; J1644; J1650; J2060; J2250; J2543; J2704; J3370; J3475; J3480; J3490; J7042; J7050; J7120; Q9967; S0028; U0002

== ENCOUNTER 2024-08-14 10:06 | Emergency (ER) | payer MEDICARE, MEDICAID ==
[2024-08-14 10:52] LABS: #Basophils 0.03 10x3/uL (0.0-0.2); #Eosinophils 0.27 10x3/uL (0.0-0.5); #Monocytes 0.67 10x3/uL (0.0-1.1); %Basophils 0.4 % (0.0-2.0); %Eosinophils 3.3 % (0.0-6.0); %Lymphocytes 20.7 % (18.0-47.0); %Monocytes 8.3 % (0.0-10.0); %Neutrophils 65.4 % (40.0-75.0); Hematocrit 39.9 % (38.8-50.0); Mean Corpuscular HGB CONC 32.6 g/dL (32.0-36.0); Mean Corpuscular Hemoglobin 30.7 pg (27.0-33.0); Mean Corpuscular Volume 94.3 fL (81.2-95.1); Mean Platelet Volume 9.6 fL (7.4-10.4); Platelet Count 152 10x3/uL (150-450); Red Blood Cell (RBC) Count 4.23 10x6/uL (4.32-5.72); White Blood Cell (WBC) Count 8.1 10x3/uL (3.5-10.5)
[2024-08-14 11:45] LABS: Troponin I Less than 0.010 ng/mL (< 0.028)
[2024-08-14 11:47] LABS: ALT (SGPT) 10 U/L (8-55); AST (SGOT) 12 U/L (5-34); Albumin 3.2 g/dL (3.4-4.8); Alkaline Phosphatase 73 U/L (40-110); Anion Gap 12 mmol/L (10-20); BUN (Urea Nitrogen) 23 mg/dL (8.4-25.7); Bilirubin, Total 0.8 mg/dL (0.2-1.2); Calc. Creatinine Clearance 0 mL/min (70-130); Calcium 9.1 mg/dL (7.8-10.44); Carbon Dioxide 26 mmol/L (23-31); Chloride 107 mmol/L (98-107); Estimated GFR 45; Globulin 3.2 g/dL (2.4-3.5); Glucose 104 mg/dL (83-110); Potassium 4.6 mmol/L (3.5-5.1); Protein, Total 6.4 g/dL (5.8-8.1); Sodium 140 mmol/L (136-145)
[2024-08-14 15:52] LABS: Bilirubin Neg (Negative); Blood, Urine 250 (Negative); Clarity Clear (Clear); Glucose, Urine (Dipstick) Normal (Negative); Ketone, Urine Negative (Negative); Leukocyte Negative (Negative); Nitrite Negative (Negative); Protein, Urine (Dipstick) 100 mg/dl (Neg-Trace); Specific Gravity, Urine 1.015 (1.005-1.030)
[2024-08-14 16:21] LABS: Bacteria/HPF None Seen HPF (None Seen); CAUTI Indications for Culture Alt mental st,lethar; Squamous Epithelial 0-3 HPF (0-3); WBC/HPF 0-3 HPF (0-3)
[2024-08-14 16:22] LABS: Urine Culture Reflex No No
== END 2024-08-14 21:35 | disposition home or self-care (01) ==
LOC: CSHERS 10:06
DX: R41.82 Altered mental status, unspecified (principal); I48.92 Unspecified atrial flutter; Z86.73 Personal history of transient ischemic attack (TIA), and cerebral infarction without residual deficits
CPT/HCPCS: 70450; 71045; 80053; 81001; 84484; 85025; 93005